=== PATIENT | female | born 1970 | race Two or more races ===

== ENCOUNTER → 2020-02-03 | Outpatient (CLI) | payer OTHER | END | disposition home or self-care (01) | LOC: OFIC 805 12:30 | PROVIDERS: ATTEND Otolaryngology Otology & Neurotology | DX: K21.9 Gastro-esophageal reflux disease without esophagitis (principal); F45.8 Other somatoform disorders; J02.8 Acute pharyngitis due to other specified organisms ==

== ENCOUNTER 2020-05-17 13:34 | Outpatient (CLI) | payer OTHER | END 2020-05-17 14:23 | disposition home or self-care (01) | LOC: OFIC 805 13:34 | PROVIDERS: ATTEND Otolaryngology Otology & Neurotology | DX: K21.9 Gastro-esophageal reflux disease without esophagitis (principal); F45.8 Other somatoform disorders; J02.8 Acute pharyngitis due to other specified organisms ==